=== PATIENT | female | born 1950 | race Caucasian/White ===

== ENCOUNTER 2020-08-01 07:14 | Day surgery (SDC) | payer OTHER ==
[2020-07-27 09:25] VITALS: BMI 24.7
[2020-08-01 07:46] VITALS: TEMP 98.2
[2020-08-01] MEDS ORDERED: PROPOFOL 20 ML ONE ×3 (07:56)
[2020-08-01] MEDS ORDERED: LIDOCAINE HCL/PF 2% SDV 5ML VIAL ONE (07:56)
[2020-08-01 09:18] VITALS: BP 110/56; PULSE 67
== END 2020-08-01 09:15 | disposition home or self-care (01) ==
LOC: FASU-ENDO 07:14
PROVIDERS: ATTEND Internal Medicine Gastroenterology
PROC: 0DJD8ZZ Inspection of Lower Intestinal Tract, Via Natural or Artificial Opening Endoscopic (ICD-10-PCS; principal; 2020-08-01 08:24)
DX: Z12.11 Encounter for screening for malignant neoplasm of colon (principal); Z86.010 Personal history of colon polyps; K57.30 Diverticulosis of large intestine without perforation or abscess without bleeding